=== PATIENT | female | born 1995 | race Caucasian/White ===

== ENCOUNTER 2021-01-28 20:37 | Emergency (ER) | payer SELFPAY ==
[~2021-01-28] VITALS: Ht 172.7 cm; Wt 122.7 kg
--- NOTE | 2021-01-28 21:13 | PHYS DOC ---
Past History Past Medical History: No Pertinent History Past Surgical History: No Surgical History Alcohol Use: None Adult General Chief Complaint Chief Complaint: LACERATION/AVULSION HPI HPI Patient is a 25-year-old female, otherwise healthy and up-to-date on tetanus status who presents with a chief complaint of laceration. States she was in her kitchen just before coming to the emergency department and cut the palm of her hand while cutting frozen pizza for dinner. Denies any other injuries. States that does not really hurt bad maybe 2 out of 10. Review of Systems Review of Systems Review of systems otherwise unremarkable except noted in HPI Allergies Allergies Allergies Coded Allergies Type Severity Reaction Last Updated Verified No Known Drug Allergies 01/28/21 No Physical Exam Physical Exam Constitutional: Well developed, well nourished, no acute distress, non-toxic appearance. [] Skin: Patient has an approximately 4 cm superficial laceration on mid palm of left hand distal to the wrist and proximal to the MCP Extremities: No tenderness, no cyanosis, no clubbing, ROM intact, no edema. [] Neurologic: Alert and oriented X 3, normal motor function, normal sensory function, no focal deficits noted. [] Psychologic: Affect normal, judgement normal, mood normal. [] Current Patient Data Vital Signs Vital Signs Date Time Temp Pulse Resp B/P (MAP) Pulse Ox O2 Delivery O2 Flow Rate FiO2 01/28/21 20:37 98.1 118 18 145/86 (105) 99 Room Air EKG EKG [] Radiology/Procedures Radiology/Procedures [] Heart Score C/O Chest Pain: No Risk Factors: Risk Factors: DM, Current or recent (<one month) smoker, HTN, HLP, family history of CAD, obesity. Risk Scores: Risk Factors: DM, Current or recent (<one month) smoker, HTN, HLP, family history of CAD, obesity. Course & Med Decision Making Course & Med Decision Making Patient is a 25-year-old female presents with hand laceration Vital signs not concerning. Physical exam noted above. Patient up-to-date on tetanus vaccination. Wound cleaned with sterile saline. L ET placed for topical anesthesia. Anesthesia achieved. Repaired with Dermabond. Bandaged. Wrapped with Jung wrap to prevent excessive movement of the hand. Gave wound care instructions. Advised to follow-up with primary care physician within the week for a wound check. Gave return precautions to the ED. Patient grateful, verbalized understanding and agreed with plan of discharge. [] Dragon Disclaimer Dragon Disclaimer This electronic medical record was generated, in whole or in part, using a voice recognition dictation system. Departure Departure: Disposition: 01 DC HOME SELF CARE/HOMELESS Condition: GOOD Referrals: PCP,NO (PCP) Patient Instructions: Laceration Care, Adult, Wound Care, [id number] Additional Instructions: Please read all the attached information. You can use Tylenol, ibuprofen and ice as needed at home for pain control. Please keep the area clean, dry, bandaged and wrapped as discussed and demonstrated. Please follow-up with your primary care physician to discuss setting up a follow-up appointment for a wound check as needed. Please return to the ED with new or concerning symptoms as discussed. KVNG MONSIVAIS MD Jan 28, 2021 21:13
[2021-01-28] MEDS ORDERED: LIDOCAINE/EPI/TETRACAINE TOPICAL GEL 3 ML. TP ONE (21:15)
[2021-01-28 21:20] VITALS: BP 140/82
== END 2021-01-28 21:51 | disposition home or self-care (01) ==
LOC: ER 20:37
DX: S61.412A Laceration without foreign body of left hand, initial encounter (principal); W26.0XXA Contact with knife, initial encounter; Y93.89 Activity, other specified; Y92.89 Other specified places as the place of occurrence of the external cause; Y99.8 Other external cause status
CPT/HCPCS: 12002; 99282

== ENCOUNTER 2021-04-08 21:07 | Emergency (ER) | payer MEDICAID ==
[~2021-04-08] VITALS: Ht 172.7 cm; Wt 125.0 kg
[2021-04-08 21:07] VITALS: BP 168/117
[2021-04-08] MEDS ORDERED: AMOX500T PO (21:30)
--- NOTE | 2021-04-08 21:31 | PHYS DOC ---
Past History Past Medical History: No Pertinent History Past Surgical History: No Surgical History Alcohol Use: None Adult General Chief Complaint Chief Complaint: DENTAL PROBLEM HPI HPI Patient is a 25-year-old female who presents with right lower wisdom tooth pain. States she is due to have it removed by her dentist in a couple of weeks, and also called the emergency dentist and is going to try to get in tomorrow for removal. States that the pain is 7 out of 10, sharp in nature and has been going on a couple of days now. States she took some Tylenol and ibuprofen earlier in the day which did provide a little relief but it came back. Denies any fevers, neck pain, pain or trouble swallowing, abdominal pain, nausea, vomiting. Review of Systems Review of Systems Review of systems otherwise unremarkable except noted in HPI Allergies Allergies Allergies Coded Allergies Type Severity Reaction Last Updated Verified No Known Drug Allergies 01/28/21 No Physical Exam Physical Exam Constitutional: Well developed, well nourished, no acute distress, non-toxic appearance. [] HENT: Normocephalic, atraumatic, bilateral external ears normal, oropharynx moist, no oral exudates, patient with right lower wisdom tooth that appears it is coming in in a 90 degree angle causing pain, with some erythema around the gumline. Eyes: conjunctiva normal, no discharge. [] Neurologic: Alert and oriented X 3, no focal deficits noted. [] Psychologic: Affect normal, judgement normal, mood normal. [] EKG EKG [] Radiology/Procedures Radiology/Procedures [] Heart Score C/O Chest Pain: No Risk Factors: Risk Factors: DM, Current or recent (<one month) smoker, HTN, HLP, family history of CAD, obesity. Risk Scores: Risk Factors: DM, Current or recent (<one month) smoker, HTN, HLP, family history of CAD, obesity. Course & Med Decision Making Course & Med Decision Making Patient is a 25-year-old female who presents to the emergency department with wisdom tooth dental pain Vital signs not concerning. Physical exam noted above. Given patient oral pain medication and Hurricaine spray in the ED. Patient politely declined digital block. Started on antibiotics as well. Gave contact information for local dentists, free clinics and emergency dentist. Advised to call everybody first thing in the morning as this tooth most likely needs to be removed to alleviate symptoms. Gave return precautions to the ED. Patient grateful, verbalized understanding and agreed with plan of discharge. [] Dragon Disclaimer Dragon Disclaimer This electronic medical record was generated, in whole or in part, using a voice recognition dictation system. Departure Departure: Impression: Primary Impression: Pain, dental Disposition: HOME / SELF CARE / HOMELESS Condition: GOOD Referrals: PCP,NO (PCP) MOON DURAN MD Patient Instructions: Dental Pain Additional Instructions: Please read all the attached information very carefully. Please take your antibiotics as prescribed. You were given oral narcotic pain medicine in the emergency department, please do not drink alcohol with this, drive or go to work or be the sole guardian of any children. You can continue your Tylenol and ibuprofen as discussed. You can also use Orajel applied as discussed. Please call your dentist, the emergency dentist or the ones provided in your resources first thing in the morning to update on your ED visit and get in as soon as possible for tooth extraction if needed. Please come back to the ED with new or concerning symptoms as discussed. Scripts Amoxicillin (AMOXICILLIN) 500 Mg Tablet 1 TAB PO BID for dental infection for 10 Days, #19 TAB Prov: KVNG MONSIVAIS MD 04/08/21 KVNG MONSIVAIS MD April 08, 2021 21:31
[2021-04-08] MEDS ORDERED: oxyCODONE/APAP 5/325 1 TAB TABLET ONE (21:34)
[2021-04-08] MEDS: BENZOCAINE ONE 20% MUCOSAL SPRAY. MM (21:36)
[2021-04-08] MEDS: AMOXICILLIN 250 MG CAPSULE PO ONE (21:37)
[2021-04-08] MEDS: oxyCODONE/APAP 5/325 1 TAB TABLET PO ONE (21:37)
== END 2021-04-08 21:46 | disposition home or self-care (01) ==
LOC: ER 21:07
DX: K08.89 Other specified disorders of teeth and supporting structures (principal)
CPT/HCPCS: 99284

== ENCOUNTER 2021-05-09 16:48 | Emergency (ER) | payer MEDICAID ==
[~2021-05-09] VITALS: Ht 172.7 cm; Wt 127.0 kg
[~2021-05-09 16:48] MED LIST: AMOX500T PO
[2021-05-09] MEDS ORDERED: PENI500T PO (18:15)
[2021-05-09] MEDS ORDERED: HYDR-2155 PO (18:18)
--- NOTE | 2021-05-09 18:19 | PHYS DOC ---
Past History Past Medical History: Anxiety, Depression Additional Past Medical Histor: ptsd (MARTHA MANE APRN) Past Surgical History: No Surgical History (MARTHA MANE APRN) Alcohol Use: None (MARTHA MANE APRN) General Adult EDM: Chief Complaint: DENTAL PROBLEM HPI: HPI: Patient is a 25-year-old female who presents with right lower dental pain. Patient states that she has had facial swelling and pain for couple of days. Patient been taking ibuprofen and Tylenol at home with no relief. Patient is scheduled to have a root canal on . Patient denies health history. Denies fevers. (MARTHA MANE APRN) Review of Systems: Review of Systems: Constitutional: Denies fever or chills Eyes: Denies change in visual acuity HENT: Reports right lower dental pain Respiratory: Denies cough or shortness of breath Cardiovascular: Denies chest pain or edema GI: Denies abdominal pain, nausea, vomiting, bloody stools or diarrhea : Denies dysuria Musculoskeletal: Denies back pain or joint pain Integument: Denies rash Neurologic: Denies headache, focal weakness or sensory changes Endocrine: Denies polyuria or polydipsia Lymphatic: Denies swollen glands Psychiatric: Denies depression or anxiety (MARTHA MANE APRN) Allergies: Allergies: Allergies Coded Allergies Type Severity Reaction Last Updated Verified No Known Drug Allergies 01/28/21 No (MARTHA MANE APRN) Physical Exam: PE: Constitutional: Well developed, well nourished, no acute distress, non-toxic appearance. [] HENT: Normocephalic, atraumatic, bilateral external ears normal, oropharynx moist, no oral exudates, nose normal. [] Eyes: PERRLA, EOMI, conjunctiva normal, no discharge. [] Neck: Normal range of motion, no tenderness, supple, no stridor. [] Cardiovascular:Heart rate regular rhythm, no murmur [] Lungs & Thorax: Bilateral breath sounds clear to auscultation [] Abdomen: Bowel sounds normal, soft, no tenderness, no masses, no pulsatile masses. [] Skin: Warm, dry, no erythema, no rash. [] Back: No tenderness, no CVA tenderness. [] Extremities: No tenderness, no cyanosis, no clubbing, ROM intact, no edema. [] Neurologic: Alert and oriented X 3, normal motor function, normal sensory function, no focal deficits noted. [] Psychologic: Affect normal, judgement normal, mood normal. [] (MARTHA MANE APRN) Current Patient Data: Vital Signs: Vital Signs Date Time Temp Pulse Resp B/P (MAP) Pulse Ox O2 Delivery O2 Flow Rate FiO2 05/09/21 16:50 98.8 104 20 168/104 (125) 97 Room Air (MARTHA MANE APRN) EKG: EKG: [] (MARTHA MANE APRN) Radiology/Procedures: Radiology/Procedures: [] (MARTHA MANE APRN) Heart Score: C/O Chest Pain: No Risk Factors: Risk Factors: DM, Current or recent (<one month) smoker, HTN, HLP, family history of CAD, obesity. Risk Scores: Score 0 - 3: 2.5% MACE over next 6 weeks - Discharge Home Score 4 - 6: 20.3% MACE over next 6 weeks - Admit for Clinical Observation Score 7 - 10: 72.7% MACE over next 6 weeks - Early Invasive Strategies (MARTHA MANE APRN) Course & Med Decision Making: Course & Med Decision Making Pertinent Labs and Imaging studies reviewed. (See chart for details) [] 25-year-old female presents with right-sided, lower dental pain. Patient also has right-sided facial swelling. Patient has a root canal scheduled for . Afebrile. Patient given penicillin VK to treat infection. Hydrocodone 5/325 for pain. Instructed patient to still take ibuprofen at home for breakthrough pain. Ice to area. Patient is appreciative and okay with discharge plan. (MARTHA MANE APRN) Course & Med Decision Making I oversaw on the above date of service of this patient. This patient was evaluated, examined, treated, and dispositioned from the emergency department by the mid-level practitioner. Although I was working at the time and available for consultation, no assistance was requested and I did not see or immediately direct the care of this patient. I reviewed note and agree to findings, plan of care, and disposition as stated. Electronically signed, Awa Morris DO (AWA MORRIS DO) Alyssa Disclaimer: Alyssa Disclaimer: This electronic medical record was generated, in whole or in part, using a voice recognition dictation system. (MARTHA MANE APRN) Departure Departure: Impression: Primary Impression: Pain, dental Disposition: HOME / SELF CARE / HOMELESS Condition: STABLE Referrals: PCP,NO (PCP) Patient Instructions: Dental Pain Additional Instructions: You were seen in the emergency room for right-sided dental swelling and pain. Sending you home with an antibiotic. Please take the antibiotic as directed. I am also giving you a few hydrocodone to take for pain until you can follow-up for your root canal. You may also take ibuprofen for breakthrough pain. Please return emergency room if you have worsening symptoms or concerns EMERGENCY DEPARTMENT GENERAL DISCHARGE INSTRUCTIONS Thank you for coming to [facility] (ED) today and trusting us with you care. We trust that you had a positivie experience in our Emergency Department. If you wish to speak to the department management, you may call the director at [phone]. YOUR FOLLOW UP INSTRUCTIONS ARE FOLLOWS: 1. Do you have a private Doctor? If you do not have a private doctor, please ask for a resource list of physicians or clinics that may be able to assist you with follow up care. 2. The Emergency Physician has interpreted your x-rays. The X-Ray specialist will also review them. If there is a change in the findings, you will be notified in 48 hours when at all possible. 3. A lab test or culture has been done, your results will be reviewed and you will be notified if you need a change in treatment. ADDITIONAL INSTRUCTIONS AND INFORMATION: 1. Your care today has been supervised by a physician who is specially trained in emergency care. Many problems require more than one evaluation for a complete diagnosis and treatment. We recommend that you schedule your follow up appointment as recommended to ensure complete treatment of you illness or injury. If you are unable to obtain follow up care and continue to have a problem, or if your condition worsens, we recommend that you return to the ED. 2. We are not able to safely determine your condition over the phone nor are we able to give sound medical advice over the phone. For these safety reasons, if you call for medical advice we will ask you to come to the ED for further evaluation. 3. If you have any questions regarding these discharge instructions please call the ED at [phone]. SAFETY INFORMATION: In the interest of safety, wellness, and injury prevention; we encourage you to wear your sealbelt, if you smoke; quite smoking, and we encourage family to use a protective helmet for bicycling and other sporting events that present an increased risk for head injury. IF YOUR SYMPTOMS WORSEN OR NEW SYMPTOMS DEVELOP, OR YOU HAVE CONCERNS ABOUT YOUR CONDITION; OR IF YOUR CONDITION WORSENS WHILE YOU ARE WAITING FOR YOUR FOLLOW UP APPOINTMENT; EITHER CONTACT YOUR PRIMARY CARE DOCTOR, THE PHYSICIAN WHOSE NAME AND NUMBER YOU WERE GIVEN, OR RETURN TO THE ED IMMEDIATELY. Scripts Hydrocodone Bit/Acetaminophen (HYDROCODONE-APAP 5-325 ) 1 Each Tablet 1 TAB PO PRN Q6HRS PRN for PAIN for 3 Days, #12 TAB 0 Refills Prov: MARTHA MANE APRN 05/09/21 Penicillin V Potassium (PENICILLIN V POTASSIUM) 500 Mg Tablet 500 MG PO Q6HRS for DENTAL INFECTION for 7 Days, #28 TAB Prov: MARTHA MANE APRN 05/09/21 MARTHA MANE APRN May 09, 2021 18:19 AWA MORRIS DO May 10, 2021 07:19
[2021-05-09 18:20] VITALS: BP 156/90
[2021-05-09] MEDS ORDERED: IBUPROFEN 600 MG TABLET. PO ONE (18:30)
== END 2021-05-09 18:25 | disposition home or self-care (01) ==
LOC: ER 16:48
DX: K08.89 Other specified disorders of teeth and supporting structures (principal); F41.9 Anxiety disorder, unspecified; F32.9 Major depressive disorder, single episode, unspecified
CPT/HCPCS: 99283